=== PATIENT | female | born 1975 | race Hispanic/Latino ===

== ENCOUNTER 2017-05-09 13:41 | Outpatient (RCR) | payer OTHER | END 2017-05-13 | LOC: PT 13:41 | PROVIDERS: ATTEND Internal Medicine Endocrinology, Diabetes & Metabolism | DX: M13.112 Monoarthritis, not elsewhere classified, left shoulder (principal); M24.212 Disorder of ligament, left shoulder ==

== ENCOUNTER 2017-06-05 17:00 | Outpatient (RCR) | payer OTHER | END 2017-06-12 | LOC: PT 17:00 | PROVIDERS: ATTEND Internal Medicine Endocrinology, Diabetes & Metabolism | DX: M13.112 Monoarthritis, not elsewhere classified, left shoulder (principal); M24.212 Disorder of ligament, left shoulder; M25.512 Pain in left shoulder; M62.81 Muscle weakness (generalized) | CPT/HCPCS: 97139 ==

== ENCOUNTER 2017-06-14 17:42 | Outpatient (RCR) | payer OTHER | END 2017-07-13 | LOC: PT 17:42 | PROVIDERS: ATTEND Internal Medicine Endocrinology, Diabetes & Metabolism | DX: M13.112 Monoarthritis, not elsewhere classified, left shoulder (principal); M24.212 Disorder of ligament, left shoulder; M25.512 Pain in left shoulder; M62.81 Muscle weakness (generalized) | CPT/HCPCS: 97139 ==